=== PATIENT | female | born 1940 | race Caucasian/White ===

== ENCOUNTER 2016-09-13 13:55 | Inpatient (IN) | payer MEDICARE ==
--- NOTE | 2016-09-13 14:26 | ED Physician Chart ---
Chief Complaint/HPI - Patient Information Date Seen:: 09/13/16 Time Seen:: 14:00 Chief Complaint:: CONFUSION History of Present Illness:: THIS IS A 76 YO FEMALE WITH THE SUDDEN ONSET OF CONFUSION WITH MEMORY LOSS THAT STARTED TODAY. SHE JUST GOT BACK TO [place] TWO DAYS AGO. SHE HAS BEEN GOING THERE FOR TREATMENT OF A TUMOR IN HER ABDOMEN, GETTING CHEMOTHERAPY. SHE DENIES NAUSEA, VOMITING AND CHEST PAIN. SHE VERY CONCERNED ABOUT HER THOUGH PROCESS. THE NICE SHOWED UP AND DISPUTED ALL OF THE INFORMATION THAT THE PATIENT STATED ABOVE. SHE HAS BEEN GOING TO [place] EVERY THREE MONTHS FOR CHEMO AND RADIATION. SHE IS VERY CONFUSED. Historian:: Patient, Family Member Review:: Nurse's Note Reviewed Review of Systems - Review of Systems General/Constitutional: No fever, No chills, No weight loss, No weakness, No diaphoresis, No edema, No loss of appetite, Other (THIS PATIENT UNABLE TO GIVE A REVIEW OF SYSTEMS.) Skin: No skin lesions, No rash, No bruising Head: No headache, No light-headedness Eyes: No loss of vision, No pain, No diplopia ENT: No earache, No nasal drainage, No sore throat, No tinnitus Neck: No neck pain, No swelling, No thyromegaly, No stiffness, No mass noted Cardio Vascular: No chest pain, No palpitations, No PND, No orthopnea, No edema Pulmonary: No SOB, No cough, No sputum, No wheezing GI: No nausea, No vomiting, No diarrhea, No pain, No melena, No hematochezia, No constipation, No hematemesis G/U: No dysuria, No frequency, No hematuria Musculoskeletal: No bone or joint pain, No back pain, No muscle pain Endocrine: No polyuria, No polydipsia Psychiatric: No prior psych history, No depression, No anxiety, No suicidal ideation Hematopoietic: No bruising, No lymphadenopathy Allergic/Immuno: No urticaria, No angioedema Neurological: No syncope, No focal symptoms, No weakness, No paresthesia, No headache, No seizure, No dizziness, No confusion, No vertigo Past Medical History - Past Medical History Obtainable: Yes Past Medical History: CAD, CHF, Other (CANCER) Family History: None Social History: Non Smoker, No Alcohol, No Drug Use, Single Surgical History: None Psychiatricy History: None Medication: Reviewed Family Medical History - Family Member Mother History Unknown: Yes Physical Exam - Physical Examination General/Constitutional: Awake, Well-developed, well-nourished, Alert, No distress, GCS 15, Non-toxic appearing, Ambulatory Head: Atraumatic Eyes: Lids, conjuctiva normal, PERRL, EOMI Skin: Nl inspection, No rash, No skin lesions, No ecchymosis, Well hydrated, No lymphadenopathy ENMT: External ears, nose nl, Nasal exam nl, Lips, teeth, gums nl Neck: Nontender, Full ROM w/o pain, No JVD, No nuchal rigidity, No bruit, No mass, No stridor Respiratory: Nl effort/Exclusion Other Respiratory comments:: BILATERAL RALES HEARD Cardio Vascular: No murmur, gallop, rubs, NL S1 S2 Other Cardio Vascular comments:: ATRIAL FIB HEARD WITHOUT MURMUR GI: No tenderness/rebounding/guarding, No organomegaly, No hernia, Normal BS's, Nondistended, No mass/bruits, No McBurney tenderness : No CVA tenderness Extremities: No tenderness or effusion, Full ROM, normal strength in all extremities, No edema, Normal digits & nails Neuro/Psych: Alert/oriented, DTR's symmetric, Normal sensory exam, Normal motor strength, Judgement/insight normal, Mood normal, Normal gait, No focal deficits Misc: normal gait, Normal back, No paraspinal tenderness Labs/Radiology/EKG Results - Lab Results Results: Abnormal Lab Results 09/13/16 09/13/16 09/13/16 14:18 14:18 14:18 WBC 5.2 RBC 4.20 Hgb 12.3 Hct 36.6 MCV 87.3 MCH 29.2 MCHC Differential 33.5 RDW 13.8 Plt Count 140 L MPV 8.0 Neutrophils % 72.4 Lymphocytes % 13.1 L Monocytes % 10.2 H Eosinophils % 4.2 Basophils % 0.1 Sodium 133 L Potassium 3.8 Chloride 103 Carbon Dioxide 25.3 Anion Gap 8.5 BUN 20 Creatinine 0.8 Est GFR ( Amer) TNP Est GFR (Non-Af Amer) TNP BUN/Creatinine Ratio 25.0 Glucose 106 H Calcium 9.3 Total Bilirubin 0.9 AST 19 ALT 20 Alkaline Phosphatase 60 Troponin I 0.01 Total Protein 6.3 Albumin 4.1 Globulin 2.2 Albumin/Globulin Ratio 1.9 H TSH Urine Source Urine Color Urine Clarity Urine pH Ur Specific [place] Urine Protein Urine Glucose (UA) Urine Ketones Urine Blood Urine Nitrate Urine Bilirubin Urine Urobilinogen Ur Leukocyte Esterase Urine RBC Urine WBC Ur Epithelial Cells Urine Bacteria 09/13/16 09/13/16 14:18 15:00 WBC RBC Hgb Hct MCV MCH MCHC Differential RDW Plt Count MPV Neutrophils % Lymphocytes % Monocytes % Eosinophils % Basophils % Sodium Potassium Chloride Carbon Dioxide Anion Gap BUN Creatinine Est GFR ( Amer) Est GFR (Non-Af Amer) BUN/Creatinine Ratio Glucose Calcium Total Bilirubin AST ALT Alkaline Phosphatase Troponin I Total Protein Albumin Globulin Albumin/Globulin Ratio TSH 1.19 Urine Source CLEAN C Urine Color YELLOW Urine Clarity CLEAR Urine pH 6.0 Ur Specific [place] 1.005 Urine Protein NEGATIVE Urine Glucose (UA) NEGATIVE Urine Ketones NEGATIVE Urine Blood TRACE Urine Nitrate NEGATIVE Urine Bilirubin NEGATIVE Urine Urobilinogen 0.2 Ur Leukocyte Esterase NEGATIVE Urine RBC 0-1 Urine WBC 0-2 Ur Epithelial Cells RARE Urine Bacteria OCCASIONAL - Radiology Results Results: CHEST -X-RAY = CHF AND CARDIOMEGALY BRAIN CT = METS LESION NOTED - EKG Interpretations EKG Time:: 14:42 Rate & Rhythm: 92, ATRIAL FIB [place]: LEFT Assessment - Assessment General Assessment: METS TO THE BRAIN NOTED ON CT SCAN ED Septic Shock - . Is Septic Shock (SBP<90, OR Lactate>4 mmol\L) present?: No Reassessment (Disposition) - Reassessment Reassessment Condition:: Unchanged - Diagnosis Diagnosis:: BRAIN METS A FIB CHF - Patient Disposition Discharge/Transfer:: Acute Care w/in this hosp Admitting Medical Physician:: Mikel Hand Condition at Disposition:: Stable ED Discharge Plan - Patient Disposition Admit/Discharge/Transfer: Acute Care w/in this hosp Condition at Disposition: Guarded
[2016-09-13 14:28] LABS: % BASOPHILS 0.1 % (0.0-2.0); % EOSINOPHILS 4.2 % (0.0-5.0); % LYMPHOCYTES 13.1 % (20.0-50.0); % MONOCYTES 10.2 % (2.0-10.0); % NEUTROPHILS 72.4 % (40.0-80.0); HEMATOCRIT 36.6 % (35.0-45.0); HEMOGLOBIN 12.3 gm/dL (11.7-16.1); MEAN CELL VOLUME 87.3 fl (81-100); MEAN CORPUSCULAR HEMOGLOBIN 29.2 pg (27.0-31.0); MEAN CORPUSCULAR HGB CONC 33.5 pg (28.0-36.0); NEUTROPHILE ABSOLUTE 3.8 Th/cmm (1.8-8.0); PLATELET COUNT 140 Th/cmm (150-400); RED CELL DISTRIBUTION WIDTH 13.8 % (11.5-20.0); WHITE BLOOD COUNT 5.2 Th/cmm (4.8-10.8)
[2016-09-13 14:41] LABS: ALB/GLOB RATIO 1.9 (1.0-1.8); ALKALINE PHOSPHATASE 60 U/L (34-104); ANION GAP 8.5 (7.0-16.0); BILIRUBIN,TOTAL 0.9 mg/dL (0.3-1.0); BUN - UREA NITROGEN 20 mg/dL (7-25); CALCIUM SERUM 9.3 mg/dL (8.6-10.3); CARBON DIOXIDE 25.3 mEq/L (21.0-31.0); CHLORIDE 103 mEq/L (98-107); CREATININE - SERUM 0.8 mg/dL (0.6-1.2); GLUCOSE 106 mg/dL (70-105); POTASSIUM SERUM 3.8 mEq/L (3.5-5.1); SGOT 19 U/L (13-39); SGPT/ALT 20 U/L (7-52); SODIUM SERUM 133 mEq/L (136-145)
--- NOTE | 2016-09-13 15:40 | Diagnostic Imaging Report ---
CT scan of the brain without intravenous contrast HISTORY: Stroke, CVA Total DLP equals 621 CTDI equals 36.2 Axial sections were obtained from the base of skull the vertex. Prior exams are not available for comparison. The exam demonstrates an approximate 1.8 cm hyperdense focus adjacent to the medial aspect of the posterior horn of the right lateral ventricle near the trigone. Surrounding hypodensity consistent with edema. Changes consistent with a neoplastic etiology. Correlation with patient history is needed. No other acute parenchymal abnormalities. No intracerebral hemorrhage. No extra-axial masses or abnormal fluid collections. Atherosclerotic calcification seen in the region of the vertebral arteries at the base of the skull. IMPRESSION: 1. Mass adjacent to the posterior medial aspect of the right lateral ventricle near the trigone. Surrounding edema noted. Findings consistent with a neoplastic etiology. Correlation with patient history and a possible prior imaging studies would be most helpful.
--- NOTE | 2016-09-13 15:41 | Diagnostic Imaging Report ---
Right lower extremity Doppler venous ultrasound exam HISTORY: Swelling Sonographic sector images were obtained through the deep venous system of the right leg. Associated Doppler data was obtained. The exam is limited due to soft tissue swelling. There appears to be patency of the right common femoral, superficial femoral, popliteal, posterior tibial veins. No thrombus is seen. Normal compressibility and augmentation responses. IMPRESSION: 1. Somewhat limited exam due to marked soft tissue swelling 2. No definite evidence of deep vein thrombophlebitis
--- NOTE | 2016-09-13 15:44 | Diagnostic Imaging Report ---
Portable chest x-ray HISTORY: Shortness of breath There is marked cardiomegaly. No focal pulmonary processes. There is a degree of pulmonary vascular redistribution suggesting an element of cardiac decompensation. No pleural fluid is seen. A vascular catheter is noted in the region of the superior vena cava. IMPRESSION: 1. Marked cardiomegaly with evidence of a degree of congestive heart failure without branden pulmonary edema. No focal processes.
[2016-09-13 15:52] LABS: URINE BILIRUBIN NEGATIVE (NEGATIVE); URINE BLOOD TRACE (NEGATIVE); URINE COLOR YELLOW; URINE GLUCOSE (UA) NEGATIVE (NEGATIVE); URINE KETONE NEGATIVE (NEGATIVE); URINE PROTEIN NEGATIVE (NEGATIVE); URINE UROBILINOGEN 0.2 E.U./dL (0.2 - 1.0)
[2016-09-13 15:53] LABS: URINE BACTERIA OCCASIONAL /hpf (NONE SEEN); URINE EPITHELIAL CELLS RARE /lpf (FEW); URINE RBC 0-1 /hpf (0-5); URINE WBC 0-2 /hpf (0-5)
[2016-09-13] MEDS ORDERED: Non-Formulary Item 1 EA (Apixaban [Eliquis] 5 MG) PO SCH (21:08)
[2016-09-14 09:00] LABS: % BASOPHILS 0.1 % (0.0-2.0); % EOSINOPHILS 3.7 % (0.0-5.0); % LYMPHOCYTES 13.5 % (20.0-50.0); % MONOCYTES 9.3 % (2.0-10.0); % NEUTROPHILS 73.4 % (40.0-80.0); HEMATOCRIT 38.9 % (35.0-45.0); HEMOGLOBIN 12.8 gm/dL (11.7-16.1); MEAN CELL VOLUME 87.5 fl (81-100); MEAN CORPUSCULAR HEMOGLOBIN 28.9 pg (27.0-31.0); MEAN PLATELET VOLUME 8.5 fl; PLATELET COUNT 134 Th/cmm (150-400); RED BLOOD COUNT 4.44 Mil/cmm (3.80-5.20); RED CELL DISTRIBUTION WIDTH 13.7 % (11.5-20.0); WHITE BLOOD COUNT 4.2 Th/cmm (4.8-10.8)
--- NOTE | 2016-09-14 09:15 | History and Physical ---
History of Present Illness - HPI Chief Complaint: Confusion HPI: 76 year old female presents to [facility] ER for evaluation of confusion with memory loss. Patient has been diagnosed with Abdominal CA and has been undergoing chemotherapy treatment in [place]. Patient's niece notice a change in her behavior and decided to bring her aunt to the hospital for evaluation. While in the ER patient underwent labwork (CBC,CMP,UA). Patient had a chest xray which revealed CHF and cardiomegaly. CT head revealed mets to the brain. Patient was subsequently admitted for further evaluation and treatment. Vital Signs: Last Vital Signs Temp 98.5 F 09/14/16 07:36 Pulse 80 09/14/16 09:05 Resp 20 09/14/16 07:36 BP 167/75 09/14/16 09:05 Pulse Ox 97 09/14/16 07:36 Past Medical History Cardiovascular: Report: AFIB, CAD, CHF Pulmonary: Report: No Pertinent Hx CHECKROOM CHIEF: Report: Other (mets to the brain noted on CT head) GI: Report: Other (abdominal CA) Psych: Report: No Pertinent Hx Musculoskeletal: Report: No Pertinent Hx Rheumatologic: Report: No pertinent Hx Infectious Disease: Report: No Pertinent Hx Renal/: Report: No Pertinent Hx Endocrine: Report: No Pertinent Hx Dermatology: Report: No Pertinent Hx - Past Surgical History Past Surgical History: No pertinent Hx Family Medical History - Family Member Mother History Unknown: Yes Social History Smoke: No Alcohol: None Drugs: None Lives: With Family - Medications Home Medications: Home Medication Medication Instructions Recorded Type Apixaban [Eliquis] 5 mg PO BID 09/13/16 History Carvedilol [Coreg] 12.5 mg PO BID 09/13/16 History - Allergies Allergies/Adverse Reactions: Allergies Allergy/AdvReac Type Severity Reaction Status Date / Time No Known Allergies Allergy Verified 09/13/16 14:42 Review of Systems - Review of Systems Constitutional: Report: No Significant Eyes: Report: No Significant ENT: Report: No Significant Respiratory: Report: No Significant Cardiovascular: Report: No Significant Gastrointestinal: Report: No Significant Genitourinary: Report: No Significant Musculoskeletal: Report: No Significant Skin: Report: No Significant Neurological: Report: Confusion Physical Exam - Physical Exam HEENT: Report: Ears Nose Throat within normal limits Neck: Report: Within normal limits Cardiovascular Systems: Report: +s1/s2 noted, Regular, Rate and Rhythm Respiratory: Report: Breath Sounds are within normal limits Abdomen: Report: Non-tender to palpation Back: Report: Inspection of back is within normal limits. Extremities: Report: Non-tender to palpation. Skin: Report: Color of skin is within normal limits - Lab Results All Lab Results last 24 hours: Laboratory Last Values WBC 4.2 Th/cmm (4.8-10.8) L 09/14/16 09:00 RBC 4.44 Mil/cmm (3.80-5.20) 09/14/16 09:00 Hgb 12.8 gm/dL (11.7-16.1) 09/14/16 09:00 Hct 38.9 % (35.0-45.0) 09/14/16 09:00 MCV 87.5 fl (81-100) 09/14/16 09:00 MCH 28.9 pg (27.0-31.0) 09/14/16 09:00 MCHC Differential 33.0 pg (28.0-36.0) 09/14/16 09:00 RDW 13.7 % (11.5-20.0) 09/14/16 09:00 Plt Count 134 Th/cmm (150-400) L 09/14/16 09:00 MPV 8.5 fl 09/14/16 09:00 Neutrophils % 73.4 % (40.0-80.0) 09/14/16 09:00 Lymphocytes % 13.5 % (20.0-50.0) L 09/14/16 09:00 Monocytes % 9.3 % (2.0-10.0) 09/14/16 09:00 Eosinophils % 3.7 % (0.0-5.0) 09/14/16 09:00 Basophils % 0.1 % (0.0-2.0) 09/14/16 09:00 Sodium 133 mEq/L (136-145) L 09/13/16 14:18 Potassium 3.8 mEq/L (3.5-5.1) 09/13/16 14:18 Chloride 103 mEq/L (98-107) 09/13/16 14:18 Carbon Dioxide 25.3 mEq/L (21.0-31.0) 09/13/16 14:18 Anion Gap 8.5 (7.0-16.0) 09/13/16 14:18 BUN 20 mg/dL (7-25) 09/13/16 14:18 Creatinine 0.8 mg/dL (0.6-1.2) 09/13/16 14:18 Est GFR ( Amer) TNP 09/13/16 14:18 Est GFR (Non-Af Amer) TNP 09/13/16 14:18 BUN/Creatinine Ratio 25.0 09/13/16 14:18 Glucose 106 mg/dL (70-105) H 09/13/16 14:18 Calcium 9.3 mg/dL (8.6-10.3) 09/13/16 14:18 Total Bilirubin 0.9 mg/dL (0.3-1.0) 09/13/16 14:18 AST 19 U/L (13-39) 09/13/16 14:18 ALT 20 U/L (7-52) 09/13/16 14:18 Alkaline Phosphatase 60 U/L (34-104) 09/13/16 14:18 Troponin I 0.01 ng/mL (0.01-0.05) 09/13/16 14:18 Total Protein 6.3 gm/dL (6.0-8.3) 09/13/16 14:18 Albumin 4.1 gm/dL (3.7-5.3) 09/13/16 14:18 Globulin 2.2 gm/dL 09/13/16 14:18 Albumin/Globulin Ratio 1.9 (1.0-1.8) H 09/13/16 14:18 TSH 1.19 uIU/ml (0.34-5.60) 09/13/16 14:18 Urine Source CLEAN C 09/13/16 15:00 Urine Color YELLOW 09/13/16 15:00 Urine Clarity CLEAR (CLEAR) 09/13/16 15:00 Urine pH 6.0 09/13/16 15:00 Ur Specific [place] 1.005 (1.005-1.030) 09/13/16 15:00 Urine Protein NEGATIVE mg/dL (NEGATIVE) 09/13/16 15:00 Urine Glucose (UA) NEGATIVE mg/dL (NEGATIVE) 09/13/16 15:00 Urine Ketones NEGATIVE mg/dL (NEGATIVE) 09/13/16 15:00 Urine Blood TRACE (NEGATIVE) 09/13/16 15:00 Urine Nitrate NEGATIVE (NEGATIVE) 09/13/16 15:00 Urine Bilirubin NEGATIVE (NEGATIVE) 09/13/16 15:00 Urine Urobilinogen 0.2 E.U./dL (0.2 - 1.0) 09/13/16 15:00 Ur Leukocyte Esterase NEGATIVE (NEGATIVE) 09/13/16 15:00 Urine RBC 0-1 /hpf (0-5) 09/13/16 15:00 Urine WBC 0-2 /hpf (0-5) 09/13/16 15:00 Ur Epithelial Cells RARE /lpf (FEW) 09/13/16 15:00 Urine Bacteria OCCASIONAL /hpf (NONE SEEN) 09/13/16 15:00 RPR NONREACTIVE (NONREACTIVE) 09/13/16 14:18 Laboratory Results - last 24 hr 09/14/16 09:00 WBC 4.2 L RBC 4.44 Hgb 12.8 Hct 38.9 MCV 87.5 MCH 28.9 MCHC Differential 33.0 RDW 13.7 Plt Count 134 L MPV 8.5 Neutrophils % 73.4 Lymphocytes % 13.5 L Monocytes % 9.3 Eosinophils % 3.7 Basophils % 0.1 - Assessment Assessment: Current Active Problems Problem Status Onset INCREASED CONFUSION AND PEDAL EDEMA Acute ALOC w/ mets to the brain ... will order neurology consult CAD -- will continue current medication Hyperlipidemia CHF/Atrial Fib -- will continue Eliquis, will order cardiology consult. Mets to the Brain noted on CT head - Plan Plan: ALOC w/ mets to the brain ... will order neurology consult CAD -- will continue current medication Hyperlipidemia CHF/Atrial Fib -- will continue Eliquis, will order cardiology consult. Mets to the Brain noted on CT head
[2016-09-14 09:22] LABS: ALB/GLOB RATIO 1.7 (1.0-1.8); ALKALINE PHOSPHATASE 58 U/L (34-104); ANION GAP 7.6 (7.0-16.0); BILIRUBIN,TOTAL 0.9 mg/dL (0.3-1.0); BUN - UREA NITROGEN 15 mg/dL (7-25); BUN/CREATININE RATIO 21.4; CALCIUM SERUM 9.1 mg/dL (8.6-10.3); CARBON DIOXIDE 28.6 mEq/L (21.0-31.0); CHLORIDE 104 mEq/L (98-107); CREATININE - SERUM 0.7 mg/dL (0.6-1.2); GLUCOSE 158 mg/dL (70-105); POTASSIUM SERUM 4.2 mEq/L (3.5-5.1); SGOT 17 U/L (13-39); SGPT/ALT 16 U/L (7-52); SODIUM SERUM 136 mEq/L (136-145)
--- NOTE | 2016-09-14 17:11 | Consultation ---
DATE OF CONSULTATION: 09/14/2016 REFERRING PHYSICIAN: Dr. Hand. REASON FOR CONSULTATION: Metastatic cancer to the brain. HISTORY OF PRESENT ILLNESS: The patient is a 76-year-old female who was originally from [place]. She was visiting her daughter in [place] when she was diagnosed with abdominal mass and she was started on chemotherapy, Taxol for 3 cycles along with other chemotherapy agent. She does not know the name of it and she had developed neuropathy, therefore treatment was stopped and she received radiation to the abdomen at the site of the tumor in the abdomen. Originally, the tumor was diagnosed with the CT-guided biopsy. She was told that the tumor shrink by half. She was visiting back here and had some change in mental status; therefore, she was admitted to the hospital. CT scan without contrast showed 1.8 cm mass close to the posterior horn of the lateral ventricle with surrounding edema suspicious for metastasis. Therefore, I was asked to evaluate. PAST MEDICAL HISTORY: Atrial fibrillation, on anticoagulation, congestive heart failure, coronary artery disease, history of cancer of unknown primary, presenting with abdominal mass last year as mentioned above. MEDICATIONS: Reviewed, Xarelto, Zestril, Catapres and Coreg. PHYSICAL EXAMINATION: GENERAL: The patient is awake, alert, oriented. No neuro deficits. VITAL SIGNS: Stable. NECK: No peripheral lymphadenopathy. CHEST: Clear. ABDOMEN: Palpable mass in the right lower quadrant. No ascites. EXTREMITIES: Varicose veins in lower extremities, otherwise unremarkable. LABORATORY DATA: CBC, platelets 140. Liver function is normal. Creatinine is 0.8. CT head without contrast as mentioned above. ASSESSMENT: History of carcinoma of unknown primary, status post chemotherapy and radiation therapy with partial response, now with patient is presenting with CT scan positive mass in the head likely metastatic disease. I will repeat the CT scan of the head with contrast and obtain a CT scan of the chest, abdomen and pelvis with contrast and retrieve records from [place] and start the patient on Decadron for the vasogenic edema in the brain. The risks and benefit of using Xarelto will need to be evaluated and addressed by the tank cleaner. Thank you, Dr. Hand, for the opportunity to participate in the care of this interesting case. JOB# [id number]
[2016-09-14] MEDS: Dexamethasone Sodium Phos 4 mg/mL Vial IVP SCH (18:25)
[2016-09-14] MEDS ORDERED: IOHEXOL 350mg/mL 150mL IV ONE (20:24)
--- NOTE | 2016-09-15 00:19 | Consultation ---
DATE OF CONSULTATION: 09/14/[address] Chet Hand. HISTORY AND PHYSICAL: This is a 76-year-old female patient who was brought to the Emergency Room due to confusion. The patient had a CT scan of the brain which showed metastasis in the brain. The patient's chest x-ray showed congestive heart failure and hence the patient is admitted. Cardiac consult is requested. PAST MEDICAL HISTORY: Colon cancer with radiation and chemotherapy, congestive heart failure, diastolic dysfunction, acute hypertension, atrial fibrillation, stable angina, peripheral neuropathy secondary to chemotherapy. FAMILY HISTORY: Unremarkable. SOCIAL HISTORY: No history of smoking or alcohol abuse. ALLERGIES: No known allergies. PHYSICAL EXAMINATION: VITAL SIGNS: Blood pressure 160/80, pulse 70, and respirations 20. HEAD: Normocephalic. No lumps or bumps. EYES: Pupils are equal and reactive to light. Fundi show AV nicking, sclerae white, and conjunctivae pink. NECK: Carotid 2+. Normal upstroke. JVD flat. Thyroid not palpable. Lymph nodes not palpable. CHEST: Shows increased AP diameter. No kyphosis or scoliosis. LUNGS: Bilateral bronchovesicular breath sounds. Bilateral rales. Decreased breath sounds in both the bases. HEART: PMI sixth intercostal space with lateral to midclavicular line. S1 irregular. S2, S3, S4. Systolic murmur, grade 2/6, lower left sternal border without radiation. ABDOMEN: Soft. Liver and spleen not palpable. No organomegaly. Bowel sounds are active. NEUROLOGIC: Peripheral neuropathy. EXTREMITIES: Peripheral pulses 1+. No pedal edema. CLINICAL IMPRESSION: Cancer of the colon with brain metastasis, congestive heart failure, diastolic dysfunction, acute hypertension, new onset of atrial fibrillation, stable angina, and peripheral neuropathy. PLAN: We will anticoagulate the patient, have Oncology evaluation and control the heart rate and get echocardiogram. JOB# [id number]
[2016-09-15] MEDS: Dexamethasone Sodium Phos 4 mg/mL Vial IVP SCH ×4 (00:32→18:48)
--- NOTE | 2016-09-15 00:54 | Admit Criteria Form ---
Admit Criteria Forms - Admit Criteria Diagnosis: MENTAL STATUS CHANGE Clinical Indications for Inpatient Care (Place 'X' for any and all applicable criteria): Ongoing inpatient care may be needed for 1 or more of the following(1)(2)(3)(5)( 6): [X ]I. Suspected serious etiology (eg, medical disorder, [employer] event) of altered mental status [ ]II. Danger to self or others not manageable at lower level of care [ ]III. Grave disability (eg, inability to perform self care necessary at lower level of care) [ ]IV. Agitation or inappropriate behavior interfering with care for primary condition (eg, attempting to discontinue lines or drains prematurely, unable to cooperate with respiratory care) [ ]V. Delirium [A] [D][E] as described by 1 or more of the following(26): [ ]a) Delirium due to alcohol or sedative [F] withdrawal [ ]b) Delirium of uncertain etiology that has not responded to appropriate empiric treatment [ ]c) Delirium that prevents performance of a life-sustaining function (eg, feeding or hydrating oneself) [X ]. General contraindications and/or Inappropriate clinical situations for Observational Care in patients with Mental Status Change, when ANY ONE of the following is required: [X ]a) Prediction of prolongation of LOS based on ANY ONE of the following may be considered as a contraindication for observational care 2, 3, 4, 5, 6, 7, 8, 9, 10, 11 [ X]i) Age > 65 yrs. [ ]ii) Patient arriving by ambulance [X ]iii) Patient with high acuity [ ]iv) Patient requiring vital sign monitoring [ ]v) Patient on IV medication [ ]b) Systolic blood pressures greater than or equal to 180mmHg 3, 12 [ ]c) Patient with altered mental status including delirium and other alteration of consciousness, (3) [ ]d) Patient whose discharge disposition will be to a jail home or rehabilitation home should not be managed in Emergency Department Observation Unit. CMS rule requires 3 days hospital stay before such placement.3,13 [ ]e) Patient with failure to thrive due to broad array of etiologies 3,16,17 [ ]f) Inability to ambulate 3,14 Extended stay beyond goal length of stay for the primary condition may be needed until ALL of the following are present(3)(5): [ ]a) Underlying medical etiology of mental status change is absent, or has been established and adequately treated [ ]b) Danger to self or others is absent or manageable at lower level of care. [ ]c) Behavior crisis management, including physical or chemical restraints, is not required or available at lower level of car [ ]d) Substance or alcohol withdrawal is absent or manageable at lower level of care. [ ]e) Behavioral symptoms (eg, agitation, somnolence, inappropriate behavior) are absent, or are manageable at lower level of care. The original [facility] content created by [facility] has been revised. The portions of the content which have been revised are identified through the use of italic text or in bold, and [facility] has neither reviewed nor approved the modified material. All other unmodified content is copyright [facility]. Please see references footnoted in the original [facility] edition 2016 Admit Criteria Met?: Yes
--- NOTE | 2016-09-15 08:13 | General Progress Note ---
Subjective - Review of Systems Service Date: 09/15/16 Subjective: Patient was seen and evaluated this morning. Patient denies any headaches or discomfort. Eating breakfast this morning. Patient had CT chest/abdomen/pelvis results still pending at this time. Patient was seen evaluated by hematology/ oncology. Please see dictated report. Patient was also seen by cardiology for history of Atrial Fibrillation and CHF. Please see dictated report. Objective - Results Result Diagrams: 09/14/16 09:00 09/14/16 09:00 Recent Labs: Laboratory Last Values WBC 4.2 Th/cmm (4.8-10.8) L 09/14/16 09:00 RBC 4.44 Mil/cmm (3.80-5.20) 09/14/16 09:00 Hgb 12.8 gm/dL (11.7-16.1) 09/14/16 09:00 Hct 38.9 % (35.0-45.0) 09/14/16 09:00 MCV 87.5 fl (81-100) 09/14/16 09:00 MCH 28.9 pg (27.0-31.0) 09/14/16 09:00 MCHC Differential 33.0 pg (28.0-36.0) 09/14/16 09:00 RDW 13.7 % (11.5-20.0) 09/14/16 09:00 Plt Count 134 Th/cmm (150-400) L 09/14/16 09:00 MPV 8.5 fl 09/14/16 09:00 Neutrophils % 73.4 % (40.0-80.0) 09/14/16 09:00 Lymphocytes % 13.5 % (20.0-50.0) L 09/14/16 09:00 Monocytes % 9.3 % (2.0-10.0) 09/14/16 09:00 Eosinophils % 3.7 % (0.0-5.0) 09/14/16 09:00 Basophils % 0.1 % (0.0-2.0) 09/14/16 09:00 Sodium 136 mEq/L (136-145) 09/14/16 09:00 Potassium 4.2 mEq/L (3.5-5.1) 09/14/16 09:00 Chloride 104 mEq/L (98-107) 09/14/16 09:00 Carbon Dioxide 28.6 mEq/L (21.0-31.0) 09/14/16 09:00 Anion Gap 7.6 (7.0-16.0) 09/14/16 09:00 BUN 15 mg/dL (7-25) 09/14/16 09:00 Creatinine 0.7 mg/dL (0.6-1.2) 09/14/16 09:00 Est GFR ( Amer) TNP 09/14/16 09:00 Est GFR (Non-Af Amer) TNP 09/14/16 09:00 BUN/Creatinine Ratio 21.4 09/14/16 09:00 Glucose 158 mg/dL (70-105) H 09/14/16 09:00 Calcium 9.1 mg/dL (8.6-10.3) 09/14/16 09:00 Total Bilirubin 0.9 mg/dL (0.3-1.0) 09/14/16 09:00 AST 17 U/L (13-39) 09/14/16 09:00 ALT 16 U/L (7-52) 09/14/16 09:00 Alkaline Phosphatase 58 U/L (34-104) 09/14/16 09:00 Troponin I 0.01 ng/mL (0.01-0.05) 09/13/16 14:18 B-Natriuretic Peptide 177.0 pg/mL (5.0-100.0) H 09/15/16 05:30 Total Protein 5.9 gm/dL (6.0-8.3) L 09/14/16 09:00 Albumin 3.7 gm/dL (3.7-5.3) 09/14/16 09:00 Globulin 2.2 gm/dL 09/14/16 09:00 Albumin/Globulin Ratio 1.7 (1.0-1.8) 09/14/16 09:00 TSH 1.19 uIU/ml (0.34-5.60) 09/13/16 14:18 Urine Source CLEAN C 09/13/16 15:00 Urine Color YELLOW 09/13/16 15:00 Urine Clarity CLEAR (CLEAR) 09/13/16 15:00 Urine pH 6.0 09/13/16 15:00 Ur Specific [place] 1.005 (1.005-1.030) 09/13/16 15:00 Urine Protein NEGATIVE mg/dL (NEGATIVE) 09/13/16 15:00 Urine Glucose (UA) NEGATIVE mg/dL (NEGATIVE) 09/13/16 15:00 Urine Ketones NEGATIVE mg/dL (NEGATIVE) 09/13/16 15:00 Urine Blood TRACE (NEGATIVE) 09/13/16 15:00 Urine Nitrate NEGATIVE (NEGATIVE) 09/13/16 15:00 Urine Bilirubin NEGATIVE (NEGATIVE) 09/13/16 15:00 Urine Urobilinogen 0.2 E.U./dL (0.2 - 1.0) 09/13/16 15:00 Ur Leukocyte Esterase NEGATIVE (NEGATIVE) 09/13/16 15:00 Urine RBC 0-1 /hpf (0-5) 09/13/16 15:00 Urine WBC 0-2 /hpf (0-5) 09/13/16 15:00 Ur Epithelial Cells RARE /lpf (FEW) 09/13/16 15:00 Urine Bacteria OCCASIONAL /hpf (NONE SEEN) 09/13/16 15:00 RPR NONREACTIVE (NONREACTIVE) 09/13/16 14:18 - Physical Exam Vitals and I&O: Vital Signs Temp 98.4 F 09/15/16 03:58 Pulse 86 09/15/16 03:58 Resp 18 09/15/16 05:08 BP 148/72 09/15/16 03:58 Pulse Ox 97 09/15/16 03:58 Intake & Output 09/14/16 09/15/16 09/15/16 18:59 06:59 18:59 Intake Total 740 Balance 740 Weight (lbs) 72.121 kg Intake: Oral 740 Other: # Voids 2 # Bowel Movements 0 Active Medications: Current Medications Carvedilol (Coreg) 12.5 mg PO BID [facility] Stop: 11/12/16 21:07 Last Admin: 09/14/16 18:23 Dose: 12.5 mg Clonidine HCl (Catapres) 0.1 mg PO Q6HR PRN PRN Reason: SBP>180 Stop: 11/12/16 21:08 Dexamethasone Sodium Phosphate (Decadron) 4 mg IVP Q6HR [facility] Stop: 11/13/16 17:59 Last Admin: 09/15/16 05:53 Dose: 4 mg Lisinopril (Zestril) 10 mg PO DAILY [facility] Stop: 11/13/16 08:59 Last Admin: 09/14/16 09:00 Dose: 10 mg Rivaroxaban (Xarelto) 20 mg PO DAILY [facility] Stop: 11/13/16 12:59 Last Admin: 09/14/16 18:25 Dose: 20 mg General: Alert, Oriented x3, Cooperative, No acute distress HEENT: Atraumatic, PERRLA, EOMI Neck: Supple Cardiovascular: Regular rate Abdomen: Bowel sounds, Soft Extremities: no Clubbing, no Cyanosis, no Edema Neurological: Normal gait, Normal speech Assessment/Plan - Problem List Patient Problems: All Active Problems Altered level of consciousness (Acute) R40.4 Atrial fibrillation (Acute) I48.91 Brain metastasis (Acute) C79.31 Cardiomegaly (Acute) I51.7 Hypertension (Acute) I10 INCREASED CONFUSION AND PEDAL EDEMA (Acute) Intra-abdominal tumor (Acute) D49.89 - Assessment Assessment: Current Active Problems Problem Status Onset INCREASED CONFUSION AND PEDAL EDEMA Acute ALOC w/ mets to the brain ... appreciated oncology evaluation. Patient on Dexamethosone. CAD -- will continue current medication Hyperlipidemia -- will order lipid profile CHF/Atrial Fib -- patient evaluated by cardiology, please see dictated report. Patient on Xarelto. Eliquis DC Brain metastasis -- CT chest,abdomen,pelvis. .. results pending Hypertension ... continue current orders. - Plan Plan: ALOC w/ mets to the brain ... will order neurology consult CAD -- will continue current medication Hyperlipidemia CHF/Atrial Fib -- will continue Eliquis, will order cardiology consult. Mets to the Brain noted on CT head
--- NOTE | 2016-09-15 10:21 | General Progress Note ---
Subjective - Review of Systems Service Date: 09/15/16 Subjective: no sz or headache Objective - Results Result Diagrams: 09/14/16 09:00 09/14/16 09:00 Recent Labs: Laboratory Last Values WBC 4.2 Th/cmm (4.8-10.8) L 09/14/16 09:00 RBC 4.44 Mil/cmm (3.80-5.20) 09/14/16 09:00 Hgb 12.8 gm/dL (11.7-16.1) 09/14/16 09:00 Hct 38.9 % (35.0-45.0) 09/14/16 09:00 MCV 87.5 fl (81-100) 09/14/16 09:00 MCH 28.9 pg (27.0-31.0) 09/14/16 09:00 MCHC Differential 33.0 pg (28.0-36.0) 09/14/16 09:00 RDW 13.7 % (11.5-20.0) 09/14/16 09:00 Plt Count 134 Th/cmm (150-400) L 09/14/16 09:00 MPV 8.5 fl 09/14/16 09:00 Neutrophils % 73.4 % (40.0-80.0) 09/14/16 09:00 Lymphocytes % 13.5 % (20.0-50.0) L 09/14/16 09:00 Monocytes % 9.3 % (2.0-10.0) 09/14/16 09:00 Eosinophils % 3.7 % (0.0-5.0) 09/14/16 09:00 Basophils % 0.1 % (0.0-2.0) 09/14/16 09:00 Sodium 136 mEq/L (136-145) 09/14/16 09:00 Potassium 4.2 mEq/L (3.5-5.1) 09/14/16 09:00 Chloride 104 mEq/L (98-107) 09/14/16 09:00 Carbon Dioxide 28.6 mEq/L (21.0-31.0) 09/14/16 09:00 Anion Gap 7.6 (7.0-16.0) 09/14/16 09:00 BUN 15 mg/dL (7-25) 09/14/16 09:00 Creatinine 0.7 mg/dL (0.6-1.2) 09/14/16 09:00 Est GFR ( Amer) TNP 09/14/16 09:00 Est GFR (Non-Af Amer) TNP 09/14/16 09:00 BUN/Creatinine Ratio 21.4 09/14/16 09:00 Glucose 158 mg/dL (70-105) H 09/14/16 09:00 Calcium 9.1 mg/dL (8.6-10.3) 09/14/16 09:00 Total Bilirubin 0.9 mg/dL (0.3-1.0) 09/14/16 09:00 AST 17 U/L (13-39) 09/14/16 09:00 ALT 16 U/L (7-52) 09/14/16 09:00 Alkaline Phosphatase 58 U/L (34-104) 09/14/16 09:00 Troponin I 0.01 ng/mL (0.01-0.05) 09/13/16 14:18 B-Natriuretic Peptide 177.0 pg/mL (5.0-100.0) H 09/15/16 05:30 Total Protein 5.9 gm/dL (6.0-8.3) L 09/14/16 09:00 Albumin 3.7 gm/dL (3.7-5.3) 09/14/16 09:00 Globulin 2.2 gm/dL 09/14/16 09:00 Albumin/Globulin Ratio 1.7 (1.0-1.8) 09/14/16 09:00 TSH 1.19 uIU/ml (0.34-5.60) 09/13/16 14:18 Urine Source CLEAN C 09/13/16 15:00 Urine Color YELLOW 09/13/16 15:00 Urine Clarity CLEAR (CLEAR) 09/13/16 15:00 Urine pH 6.0 09/13/16 15:00 Ur Specific [place] 1.005 (1.005-1.030) 09/13/16 15:00 Urine Protein NEGATIVE mg/dL (NEGATIVE) 09/13/16 15:00 Urine Glucose (UA) NEGATIVE mg/dL (NEGATIVE) 09/13/16 15:00 Urine Ketones NEGATIVE mg/dL (NEGATIVE) 09/13/16 15:00 Urine Blood TRACE (NEGATIVE) 09/13/16 15:00 Urine Nitrate NEGATIVE (NEGATIVE) 09/13/16 15:00 Urine Bilirubin NEGATIVE (NEGATIVE) 09/13/16 15:00 Urine Urobilinogen 0.2 E.U./dL (0.2 - 1.0) 09/13/16 15:00 Ur Leukocyte Esterase NEGATIVE (NEGATIVE) 09/13/16 15:00 Urine RBC 0-1 /hpf (0-5) 09/13/16 15:00 Urine WBC 0-2 /hpf (0-5) 09/13/16 15:00 Ur Epithelial Cells RARE /lpf (FEW) 09/13/16 15:00 Urine Bacteria OCCASIONAL /hpf (NONE SEEN) 09/13/16 15:00 RPR NONREACTIVE (NONREACTIVE) 09/13/16 14:18 - Physical Exam Vitals and I&O: Vital Signs Temp 98.4 F 09/15/16 03:58 Pulse 87 09/15/16 09:08 Resp 18 09/15/16 05:08 BP 162/81 09/15/16 09:08 Pulse Ox 97 09/15/16 03:58 Intake & Output 09/14/16 09/15/16 09/15/16 18:59 06:59 18:59 Intake Total 740 Balance 740 Weight (lbs) 72.121 kg Intake: Oral 740 Other: # Voids 2 # Bowel Movements 0 Active Medications: Current Medications Carvedilol (Coreg) 12.5 mg PO BID [facility] Stop: 11/12/16 21:07 Last Admin: 09/15/16 09:08 Dose: 12.5 mg Clonidine HCl (Catapres) 0.1 mg PO Q6HR PRN PRN Reason: SBP>180 Stop: 11/12/16 21:08 Dexamethasone Sodium Phosphate (Decadron) 4 mg IVP Q6HR [facility] Stop: 11/13/16 17:59 Last Admin: 09/15/16 05:53 Dose: 4 mg Lisinopril (Zestril) 10 mg PO DAILY [facility] Stop: 11/13/16 08:59 Last Admin: 09/15/16 09:07 Dose: 10 mg Rivaroxaban (Xarelto) 20 mg PO DAILY [facility] Stop: 11/13/16 12:59 Last Admin: 09/15/16 09:07 Dose: 20 mg General: Alert, Oriented x3, Cooperative, No acute distress HEENT: Atraumatic, PERRLA, EOMI Neck: Supple Cardiovascular: Regular rate Abdomen: Bowel sounds, Soft Extremities: no Clubbing, no Cyanosis, no Edema Neurological: Normal gait, Normal speech Assessment/Plan - Problem List Patient Problems: All Active Problems Atrial fibrillation (Acute) I48.91 Brain metastasis (Acute) C79.31 Cardiomegaly (Acute) I51.7 Hypertension (Acute) I10 Intra-abdominal tumor (Acute) D49.89 Altered level of consciousness (Acute) R40.4 INCREASED CONFUSION AND PEDAL EDEMA (Acute) - Assessment Assessment: awaiting result of CT head with contrast records requested from Dr. Anastacio silva
--- NOTE | 2016-09-15 10:24 | Diagnostic Imaging Report ---
Head CT with intravenous contrast Indication: Brain mass Comparison: Head CT on 09/13/2016 Technique: Axial images were obtained from the vertex to the skull base with IV contrast. Coronal reconstructions were made. Total DLP: 717, CTDI35 FINDINGS: Images of the brain obtained of the same with IV contrast demonstrate a 2 cm enhancing mass seen along the right frontoparietal region located superior and medial to the to the frontal horn of the right lateral ventricle. There is diffuse surrounding vasogenic edema and mild mass effect upon the right lateral ventricle. No evidence of midline shift. No other enhancing mass lesions identified. Limited assessment for hemorrhage demonstrates no evidence of a gross hemorrhage. The osseous structures demonstrate no acute abnormalities. IMPRESSION: 2 cm enhancing mass lesion located within the right frontoparietal lobe superior and medial to the right lateral ventricle with associated diffuse vasogenic edema. Associated mass effect is seen within the right lateral ventricle. No evidence of midline shift. Findings may represent metastatic disease or primary brain neoplasm. Clinical correlation and follow-up is recommended.
--- NOTE | 2016-09-15 10:29 | Diagnostic Imaging Report ---
CT Chest with IV contrast HISTORY: Malignancy COMPARISON: Chest x-ray performed on 09/13/2016. Technique: Axial images were obtained from the base of the neck to the upper abdomen following IV contrast. Reconstructions were made. Total DLP 217, CTDI 5.8 Findings: A right-sided Port-A-Cath is seen with tip terminating within the cavoatrial junction. There is are few nonspecific nonenlarged right paratracheal lymph nodes. Cardiomegaly is noted with mild atherosclerotic vascular disease. No evidence of any aortic aneurysm. No pericardial effusion identified. Mild chronic lung changes are seen with minimal emphysematous changes. Atelectatic hypoventilatory left lung changes are seen with bibasilar passive atelectatic changes. There is 3 mm nodular opacity the left lung base is (image 84, series 8). No pleural effusions identified. Diffuse degenerative changes of the spine are noted. An old mid sternal fracture is noted. IMPRESSION: 3 mm nodule of the left lower lobe probably due to scarring or old infectious or inflammatory process. Otherwise no pulmonary mass lesions identified. Mild chronic lung changes are mild emphysematous changes Cardiomegaly with mild atherosclerotic vascular disease in tortuous aorta. Few nonenlarged mediastinal lymph nodes noted.
--- NOTE | 2016-09-15 10:36 | Diagnostic Imaging Report ---
CT abdomen and pelvis without and with intravenous contrast Indication: Abdominal pain Comparison: None, Technique: Axial images were obtained from the lung bases to the bilateral proximal femurs before and following administration of IV contrast. Coronal reconstructions were made. total DLP: 1119, CTDI18 FINDINGS: No evidence of focal hepatic or splenic lesions. Limited assessment of the pancreas demonstrates faint calcification along the anterior aspect of the pancreas probably due to old inflammatory process. The adrenal glands are poorly visualized. No evidence of hydronephrosis or nephrolithiasis. Nondistended urinary bladder is noted. Diverticulosis is noted without evidence of diverticulitis. No evidence of acute appendicitis. Gallstones are noted. There are there is abnormal soft tissue density in calcifications seen along the right distal common iliac and external iliac region likely represent a partial calcified level lymph nodes with this area measuring 5.0 x 2.7 cm. 2 cm calcified right retroperitoneal lymph node is also noted. Trace free fluid is seen within the pelvis. Mild atherosclerotic vascular disease is noted. Mild degenerative changes at degenerative changes of the spine are seen advanced in the facet joints of the lower lumbar spine. Nonenlarged Nonenlarged bilateral inguinal lymph nodes are noted. IMPRESSION: Soft tissue density/mass lesion along the right hemipelvis along the right distal common iliac/external iliac chain regions probably representing partially calcified lymph nodes and may have been due to neoplastic process or less likely inflammatory process.. Please correlate with clinical findings. An additional 2 cm calcified right retroperitoneal lymph node is also noted. No evidence of mesenteric lymphadenopathy. No focal hepatic lesions identified. Trace free fluid in the pelvis, nonspecific. Diverticulosis without evidence of diverticulitis.
--- NOTE | 2016-09-15 16:52 | Cardiology ---
09/15/[address] Hand. M-MODE ECHOCARDIOGRAM: Mitral valve, anterior leaflet of mitral valve shows normal excursion, EF velocity. Posterior leaflet of mitral valve shows normal excursion. Left ventricular posterior wall shows increased thickness, normal excursion. Interventricular septum shows increased thickness, normal excursion, hypertrophy of the left ventricle, ejection fraction 60%. Left atrium enlarged 4.3 cm. Aortic root shows normal dimension, normal excursion of aortic leaflets. CONCLUSION: Hypertrophy of the left ventricle, left atrial enlargement, ejection fraction 60%. 2D ECHO: Long axis view showed normal sized left ventricle with hypertrophy of the left ventricle. Left atrium enlarged. Aortic root shows normal dimension, normal excursion of aortic leaflets. Short axis view of mitral valve normal. Short axis view of aortic valve normal. Apical four chamber view showed normal sized left ventricle with hypertrophy of the left ventricle. Left atrium enlarged. Right ventricular cavity, right atrium normal, no pericardial effusion. CONCLUSION: Hypertrophy of the left ventricle. Left atrial enlargement, ejection fraction 60%. Doppler study shows prominent A wave consistent with poor compliance of left ventricle. Mild tricuspid regurgitation, mild mitral regurgitation, right ventricular systolic pressure 27 mmHg. CONCLUSION: Hypertrophy of the left ventricle. Left atrial enlargement, ejection fraction 60%, mild mitral regurgitation and tricuspid regurgitation. [facility]# [id number]
[2016-09-15] MEDS ORDERED: VTE Chemical Prophylaxis Screen/Admission MC PRN (17:28)
[2016-09-16] MEDS: Dexamethasone Sodium Phos 4 mg/mL Vial IVP SCH ×4 (00:55→19:51)
--- NOTE | 2016-09-16 08:08 | General Progress Note ---
Subjective - Review of Systems Service Date: 09/16/16 Subjective: Patient was seen and evaluated this morning. Patient's daughter received all medical records during her hospital. Patient is aware that she has a new mass and will be discharged today to follow up with her regular physicians in [place] for further treatment. Objective - Results Result Diagrams: 09/14/16 09:00 09/14/16 09:00 Recent Labs: Laboratory Last Values WBC 4.2 Th/cmm (4.8-10.8) L 09/14/16 09:00 RBC 4.44 Mil/cmm (3.80-5.20) 09/14/16 09:00 Hgb 12.8 gm/dL (11.7-16.1) 09/14/16 09:00 Hct 38.9 % (35.0-45.0) 09/14/16 09:00 MCV 87.5 fl (81-100) 09/14/16 09:00 MCH 28.9 pg (27.0-31.0) 09/14/16 09:00 MCHC Differential 33.0 pg (28.0-36.0) 09/14/16 09:00 RDW 13.7 % (11.5-20.0) 09/14/16 09:00 Plt Count 134 Th/cmm (150-400) L 09/14/16 09:00 MPV 8.5 fl 09/14/16 09:00 Neutrophils % 73.4 % (40.0-80.0) 09/14/16 09:00 Lymphocytes % 13.5 % (20.0-50.0) L 09/14/16 09:00 Monocytes % 9.3 % (2.0-10.0) 09/14/16 09:00 Eosinophils % 3.7 % (0.0-5.0) 09/14/16 09:00 Basophils % 0.1 % (0.0-2.0) 09/14/16 09:00 Sodium 136 mEq/L (136-145) 09/14/16 09:00 Potassium 4.2 mEq/L (3.5-5.1) 09/14/16 09:00 Chloride 104 mEq/L (98-107) 09/14/16 09:00 Carbon Dioxide 28.6 mEq/L (21.0-31.0) 09/14/16 09:00 Anion Gap 7.6 (7.0-16.0) 09/14/16 09:00 BUN 15 mg/dL (7-25) 09/14/16 09:00 Creatinine 0.7 mg/dL (0.6-1.2) 09/14/16 09:00 Est GFR ( Amer) TNP 09/14/16 09:00 Est GFR (Non-Af Amer) TNP 09/14/16 09:00 BUN/Creatinine Ratio 21.4 09/14/16 09:00 Glucose 158 mg/dL (70-105) H 09/14/16 09:00 Calcium 9.1 mg/dL (8.6-10.3) 09/14/16 09:00 Total Bilirubin 0.9 mg/dL (0.3-1.0) 09/14/16 09:00 AST 17 U/L (13-39) 09/14/16 09:00 ALT 16 U/L (7-52) 09/14/16 09:00 Alkaline Phosphatase 58 U/L (34-104) 09/14/16 09:00 Troponin I 0.01 ng/mL (0.01-0.05) 09/13/16 14:18 B-Natriuretic Peptide 177.0 pg/mL (5.0-100.0) H 09/15/16 05:30 Total Protein 5.9 gm/dL (6.0-8.3) L 09/14/16 09:00 Albumin 3.7 gm/dL (3.7-5.3) 09/14/16 09:00 Globulin 2.2 gm/dL 09/14/16 09:00 Albumin/Globulin Ratio 1.7 (1.0-1.8) 09/14/16 09:00 TSH 1.19 uIU/ml (0.34-5.60) 09/13/16 14:18 Urine Source CLEAN C 09/13/16 15:00 Urine Color YELLOW 09/13/16 15:00 Urine Clarity CLEAR (CLEAR) 09/13/16 15:00 Urine pH 6.0 09/13/16 15:00 Ur Specific [place] 1.005 (1.005-1.030) 09/13/16 15:00 Urine Protein NEGATIVE mg/dL (NEGATIVE) 09/13/16 15:00 Urine Glucose (UA) NEGATIVE mg/dL (NEGATIVE) 09/13/16 15:00 Urine Ketones NEGATIVE mg/dL (NEGATIVE) 09/13/16 15:00 Urine Blood TRACE (NEGATIVE) 09/13/16 15:00 Urine Nitrate NEGATIVE (NEGATIVE) 09/13/16 15:00 Urine Bilirubin NEGATIVE (NEGATIVE) 09/13/16 15:00 Urine Urobilinogen 0.2 E.U./dL (0.2 - 1.0) 09/13/16 15:00 Ur Leukocyte Esterase NEGATIVE (NEGATIVE) 09/13/16 15:00 Urine RBC 0-1 /hpf (0-5) 09/13/16 15:00 Urine WBC 0-2 /hpf (0-5) 09/13/16 15:00 Ur Epithelial Cells RARE /lpf (FEW) 09/13/16 15:00 Urine Bacteria OCCASIONAL /hpf (NONE SEEN) 09/13/16 15:00 RPR NONREACTIVE (NONREACTIVE) 09/13/16 14:18 - Physical Exam Vitals and I&O: Vital Signs Temp 98.5 F 09/16/16 04:00 Pulse 83 09/16/16 04:00 Resp 18 09/16/16 05:00 BP 154/98 09/16/16 04:00 Pulse Ox 97 09/16/16 04:00 Intake & Output 09/15/16 09/16/16 09/16/16 18:59 06:59 18:59 Intake Total 300 Balance 300 Weight (lbs) 72.121 kg 72.575 kg 72.575 kg Intake: Oral 300 Other: # Voids 2 Active Medications: Current Medications Carvedilol (Coreg) 12.5 mg PO BID [facility] Stop: 11/12/16 21:07 Last Admin: 09/15/16 18:48 Dose: 12.5 mg Clonidine HCl (Catapres) 0.1 mg PO Q6HR PRN PRN Reason: SBP>180 Stop: 11/12/16 21:08 Dexamethasone Sodium Phosphate (Decadron) 4 mg IVP Q6HR [facility] Stop: 11/13/16 17:59 Last Admin: 09/16/16 06:36 Dose: 4 mg Lisinopril (Zestril) 10 mg PO DAILY [facility] Stop: 11/13/16 08:59 Last Admin: 09/15/16 09:07 Dose: 10 mg Miscellaneous ([employer] Prophylaxis Screen/ Admission) 1 ea PRN PRN PRN Reason: PROTOCOL Stop: 11/14/16 17:27 Rivaroxaban (Xarelto) 20 mg PO DAILY [facility] Stop: 11/13/16 12:59 Last Admin: 09/15/16 09:07 Dose: 20 mg General: Alert, Oriented x3, Cooperative, No acute distress HEENT: Atraumatic, PERRLA, EOMI Neck: Supple Cardiovascular: Regular rate Abdomen: Bowel sounds, Soft Extremities: no Clubbing, no Cyanosis, no Edema Neurological: Normal gait, Normal speech Assessment/Plan - Problem List Patient Problems: All Active Problems Atrial fibrillation (Acute) I48.91 Brain metastasis (Acute) C79.31 Cardiomegaly (Acute) I51.7 Hypertension (Acute) I10 Intra-abdominal tumor (Acute) D49.89 Altered level of consciousness (Acute) R40.4 INCREASED CONFUSION AND PEDAL EDEMA (Acute) - Assessment Assessment: Current Active Problems Problem Status Onset INCREASED CONFUSION AND PEDAL EDEMA Acute ALOC w/ mets to the brain ... improved on Dexamethasone. Will DC home today. patient stable to be released. Advised to follow up with her oncologist in [place]. CAD -- will continue current medication Hyperlipidemia -- will continue current medication CHF/Atrial Fib -- patient evaluated by cardiology, please see dictated report. Patient on Xarelto. Eliquis DC Brain metastasis -- CT chest,abdomen,pelvis Hypertension ... continue current orders. - Plan Plan: ALOC w/ mets to the brain ... will order neurology consult CAD -- will continue current medication Hyperlipidemia CHF/Atrial Fib -- will continue Eliquis, will order cardiology consult. Mets to the Brain noted on CT head
--- NOTE | 2016-09-16 10:21 | General Progress Note ---
Subjective - Review of Systems Service Date: 09/16/16 Events since last encounter: no sz Subjective: no sz or headache Objective - Results Result Diagrams: 09/14/16 09:00 09/14/16 09:00 Recent Labs: Laboratory Last Values WBC 4.2 Th/cmm (4.8-10.8) L 09/14/16 09:00 RBC 4.44 Mil/cmm (3.80-5.20) 09/14/16 09:00 Hgb 12.8 gm/dL (11.7-16.1) 09/14/16 09:00 Hct 38.9 % (35.0-45.0) 09/14/16 09:00 MCV 87.5 fl (81-100) 09/14/16 09:00 MCH 28.9 pg (27.0-31.0) 09/14/16 09:00 MCHC Differential 33.0 pg (28.0-36.0) 09/14/16 09:00 RDW 13.7 % (11.5-20.0) 09/14/16 09:00 Plt Count 134 Th/cmm (150-400) L 09/14/16 09:00 MPV 8.5 fl 09/14/16 09:00 Neutrophils % 73.4 % (40.0-80.0) 09/14/16 09:00 Lymphocytes % 13.5 % (20.0-50.0) L 09/14/16 09:00 Monocytes % 9.3 % (2.0-10.0) 09/14/16 09:00 Eosinophils % 3.7 % (0.0-5.0) 09/14/16 09:00 Basophils % 0.1 % (0.0-2.0) 09/14/16 09:00 Sodium 136 mEq/L (136-145) 09/14/16 09:00 Potassium 4.2 mEq/L (3.5-5.1) 09/14/16 09:00 Chloride 104 mEq/L (98-107) 09/14/16 09:00 Carbon Dioxide 28.6 mEq/L (21.0-31.0) 09/14/16 09:00 Anion Gap 7.6 (7.0-16.0) 09/14/16 09:00 BUN 15 mg/dL (7-25) 09/14/16 09:00 Creatinine 0.7 mg/dL (0.6-1.2) 09/14/16 09:00 Est GFR ( Amer) TNP 09/14/16 09:00 Est GFR (Non-Af Amer) TNP 09/14/16 09:00 BUN/Creatinine Ratio 21.4 09/14/16 09:00 Glucose 158 mg/dL (70-105) H 09/14/16 09:00 Calcium 9.1 mg/dL (8.6-10.3) 09/14/16 09:00 Total Bilirubin 0.9 mg/dL (0.3-1.0) 09/14/16 09:00 AST 17 U/L (13-39) 09/14/16 09:00 ALT 16 U/L (7-52) 09/14/16 09:00 Alkaline Phosphatase 58 U/L (34-104) 09/14/16 09:00 Troponin I 0.01 ng/mL (0.01-0.05) 09/13/16 14:18 B-Natriuretic Peptide 177.0 pg/mL (5.0-100.0) H 09/15/16 05:30 Total Protein 5.9 gm/dL (6.0-8.3) L 09/14/16 09:00 Albumin 3.7 gm/dL (3.7-5.3) 09/14/16 09:00 Globulin 2.2 gm/dL 09/14/16 09:00 Albumin/Globulin Ratio 1.7 (1.0-1.8) 09/14/16 09:00 TSH 1.19 uIU/ml (0.34-5.60) 09/13/16 14:18 Urine Source CLEAN C 09/13/16 15:00 Urine Color YELLOW 09/13/16 15:00 Urine Clarity CLEAR (CLEAR) 09/13/16 15:00 Urine pH 6.0 09/13/16 15:00 Ur Specific [place] 1.005 (1.005-1.030) 09/13/16 15:00 Urine Protein NEGATIVE mg/dL (NEGATIVE) 09/13/16 15:00 Urine Glucose (UA) NEGATIVE mg/dL (NEGATIVE) 09/13/16 15:00 Urine Ketones NEGATIVE mg/dL (NEGATIVE) 09/13/16 15:00 Urine Blood TRACE (NEGATIVE) 09/13/16 15:00 Urine Nitrate NEGATIVE (NEGATIVE) 09/13/16 15:00 Urine Bilirubin NEGATIVE (NEGATIVE) 09/13/16 15:00 Urine Urobilinogen 0.2 E.U./dL (0.2 - 1.0) 09/13/16 15:00 Ur Leukocyte Esterase NEGATIVE (NEGATIVE) 09/13/16 15:00 Urine RBC 0-1 /hpf (0-5) 09/13/16 15:00 Urine WBC 0-2 /hpf (0-5) 09/13/16 15:00 Ur Epithelial Cells RARE /lpf (FEW) 09/13/16 15:00 Urine Bacteria OCCASIONAL /hpf (NONE SEEN) 09/13/16 15:00 RPR NONREACTIVE (NONREACTIVE) 09/13/16 14:18 - Physical Exam Vitals and I&O: Vital Signs Temp 97.4 F 09/16/16 09:09 Pulse 78 09/16/16 09:09 Resp 19 09/16/16 09:09 BP 155/80 09/16/16 09:09 Pulse Ox 96 09/16/16 09:09 Intake & Output 09/15/16 09/16/16 09/16/16 18:59 06:59 18:59 Intake Total 300 Balance 300 Weight (lbs) 72.121 kg 72.575 kg 72.575 kg Intake: Oral 300 Other: # Voids 2 Active Medications: Current Medications Carvedilol (Coreg) 12.5 mg PO BID [facility] Stop: 11/12/16 21:07 Last Admin: 09/16/16 08:03 Dose: 12.5 mg Clonidine HCl (Catapres) 0.1 mg PO Q6HR PRN PRN Reason: SBP>180 Stop: 11/12/16 21:08 Dexamethasone Sodium Phosphate (Decadron) 4 mg IVP Q6HR [facility] Stop: 11/13/16 17:59 Last Admin: 09/16/16 06:36 Dose: 4 mg Lisinopril (Zestril) 10 mg PO DAILY [facility] Stop: 11/13/16 08:59 Last Admin: 09/16/16 08:02 Dose: 10 mg Miscellaneous (Vte Chemical Prophylaxis Screen/ Admission) 1 ea [facility] PRN PRN PRN Reason: PROTOCOL Stop: 11/14/16 17:27 Rivaroxaban (Xarelto) 20 mg PO DAILY [facility] Stop: 11/13/16 12:59 Last Admin: 09/16/16 08:03 Dose: 20 mg General: Alert, Oriented x3, Cooperative, No acute distress HEENT: Atraumatic, PERRLA, EOMI Neck: Supple Cardiovascular: Regular rate Abdomen: Bowel sounds, Soft Extremities: no Clubbing, no Cyanosis, no Edema Neurological: Normal gait, Normal speech Assessment/Plan - Problem List Patient Problems: All Active Problems Atrial fibrillation (Acute) I48.91 Brain metastasis (Acute) C79.31 Cardiomegaly (Acute) I51.7 Hypertension (Acute) I10 Intra-abdominal tumor (Acute) D49.89 Altered level of consciousness (Acute) R40.4 INCREASED CONFUSION AND PEDAL EDEMA (Acute) - Assessment Assessment: result of CT head with contrast was discussed with patient. Explained need for neurosurgical intervention and resection of brain mass. Explained risk of flying that may be life threatening. Daughter was bed side . Suggested transfere to another facility for surgery. Pt. will discuss with family and decide. records requested from Dr. Chaves not received yet. continue decadron
--- NOTE | 2016-09-16 15:14 | Diagnostic Imaging Report ---
MRI Brain without intravenous and with Contrast Indication: Mass Comparison: CAT scan of the head performed on 09/14/2016 Technique: Multiplanar T1, T2, FLAIR, GRE and diffusion weighted images of the brain were obtained without intravenous contrast.. IV contrast was subsequently administered and multiplanar T1-weighted images were obtained. Findings: m images of the brain obtained without contrast demonstrate no evidence of restricted diffusion. There is a 2 cm mass with enhancement including circular peripheral enhancement seen located posterior and medial to the posterior horn of the right lateral ventricle along the right parieto-occipital region with associated vasogenic edema and mild mass effect upon the posterior horn of the right lateral ventricle. No evidence of midline shift. No other enhancing mass lesions identified. The basal cisterns are patent. No midline shift. The bilateral CP angles are patent. The vascular flow voids are preserved. Visualized paranasal sinuses are clear. IMPRESSION: 2 cm mass lesion with enhancement seen located posterior and medial to the posterior horn of the right lateral ventricle with associated vasogenic edema seen along the right parieto-occipital region. Mild mass effect is seen along the posterior horn of the right lateral ventricle. No evidence of hydrocephalus. No evidence of midline shift. Findings may result in metastatic disease or primary brain neoplasm. Clinical Correlation recommended.
[2016-09-17] MEDS: Dexamethasone Sodium Phos 4 mg/mL Vial IVP SCH ×2 (00:25→05:50)
--- NOTE | 2016-09-17 06:46 | Consultation ---
DATE OF CONSULTATION: 09/16/2016 HISTORY OF PRESENT ILLNESS: The patient is a 76-year-old. She came in because of confusion. She was at the [employer] asking a lot of questions which she seemed to not been able to answer. The family feels she is currently back to her baseline. She is talking better. ____ seems to be somewhat unsure at times. The patient then complains of weakness in right leg, which she has for sometime. CT scan was abnormal. Question of possible tremor. The patient has a history of abdominal cancer. She has been getting chemotherapy. They note that she has been weak in the right leg for many months. ____ in right lower quadrant. I do not know whether it is passing against the lumbar plexus or not. PAST MEDICAL HISTORY: Otherwise, atrial fibrillation, coronary artery disease, and CHF. SOCIAL HISTORY: Does not smoke or drink. MEDICATIONS: She had been taking up apixaban and Coreg. ALLERGIES: None known. REVIEW OF SYSTEMS: No marked headache, no chest pain. The patient has no seizures. Weakness, right leg. Of note, no tremors as above. PHYSICAL EXAMINATION: VITAL SIGNS: Temperature 98.8, blood pressure 155/72, and pulse is around 80. NECK: Supple, no bruits. HEART: Sounds S1, S2. LUNGS: Clear. ABDOMEN: Tenderness. NEUROLOGIC: Awake and alert. She answers questions. She knew what day, what month, and what year. CRANIAL: Pupils react to light. I do not see any field defect. No marked facial weakness. MOTOR: She lifts both arms up. There is a slight drift on the left arm. Legs, she is ____ weak in the right leg. Left leg seems to be okay. There is some swelling on the right leg. Reflexes about 1 in upper extremities. Knees are about -1. Difficult to get on the right and left is about -1____. Ankles difficult to get. She complains of some reduced sensation in the feet and the hands, probably may be neuropathy. INVESTIGATIONS: MRI of brain shows a 2 cm lesion with enhancement in the posterior horn of the right ventricle with some edema along it in the right posterior occipital region. There is some pressure on the ventricle. No hydrocephalus. No midline shift. IMPRESSION: 1. Brain lesion. Differential primary tumor versus metastasis. 2. Abdominal cancer. 3. Atrial fibrillation, on anticoagulation. 4. Coronary artery disease. PLAN: At this time, Decadron, she is on 4 mg IV q. 6 h. Continue with that. The patient needs to be transferred to a place where she can have neurosurgical consultation to see whether any intervention at this time or whether to go along and proceed with treatment with radiation or such. Family is by the bedside. I discussed with them in detail. JOB# [id number]
--- NOTE | 2016-09-17 08:03 | General Progress Note ---
Subjective - Review of Systems Service Date: 09/17/16 Subjective: Patient was seen and evaluated this morning. Patient and her daughter saw neurology last night and was cleared to travel back to [place] to continue her treatment. Patient's daughter received all medical records during her hospital. Patient to be discharged today and to follow up with her regular physicians in [place] for further treatment. Objective - Results Result Diagrams: 09/14/16 09:00 09/14/16 09:00 Recent Labs: Laboratory Last Values WBC 4.2 Th/cmm (4.8-10.8) L 09/14/16 09:00 RBC 4.44 Mil/cmm (3.80-5.20) 09/14/16 09:00 Hgb 12.8 gm/dL (11.7-16.1) 09/14/16 09:00 Hct 38.9 % (35.0-45.0) 09/14/16 09:00 MCV 87.5 fl (81-100) 09/14/16 09:00 MCH 28.9 pg (27.0-31.0) 09/14/16 09:00 MCHC Differential 33.0 pg (28.0-36.0) 09/14/16 09:00 RDW 13.7 % (11.5-20.0) 09/14/16 09:00 Plt Count 134 Th/cmm (150-400) L 09/14/16 09:00 MPV 8.5 fl 09/14/16 09:00 Neutrophils % 73.4 % (40.0-80.0) 09/14/16 09:00 Lymphocytes % 13.5 % (20.0-50.0) L 09/14/16 09:00 Monocytes % 9.3 % (2.0-10.0) 09/14/16 09:00 Eosinophils % 3.7 % (0.0-5.0) 09/14/16 09:00 Basophils % 0.1 % (0.0-2.0) 09/14/16 09:00 Sodium 136 mEq/L (136-145) 09/14/16 09:00 Potassium 4.2 mEq/L (3.5-5.1) 09/14/16 09:00 Chloride 104 mEq/L (98-107) 09/14/16 09:00 Carbon Dioxide 28.6 mEq/L (21.0-31.0) 09/14/16 09:00 Anion Gap 7.6 (7.0-16.0) 09/14/16 09:00 BUN 15 mg/dL (7-25) 09/14/16 09:00 Creatinine 0.7 mg/dL (0.6-1.2) 09/14/16 09:00 Est GFR ( Amer) TNP 09/14/16 09:00 Est GFR (Non-Af Amer) TNP 09/14/16 09:00 BUN/Creatinine Ratio 21.4 09/14/16 09:00 Glucose 158 mg/dL (70-105) H 09/14/16 09:00 Calcium 9.1 mg/dL (8.6-10.3) 09/14/16 09:00 Total Bilirubin 0.9 mg/dL (0.3-1.0) 09/14/16 09:00 AST 17 U/L (13-39) 09/14/16 09:00 ALT 16 U/L (7-52) 09/14/16 09:00 Alkaline Phosphatase 58 U/L (34-104) 09/14/16 09:00 Troponin I 0.01 ng/mL (0.01-0.05) 09/13/16 14:18 B-Natriuretic Peptide 177.0 pg/mL (5.0-100.0) H 09/15/16 05:30 Total Protein 5.9 gm/dL (6.0-8.3) L 09/14/16 09:00 Albumin 3.7 gm/dL (3.7-5.3) 09/14/16 09:00 Globulin 2.2 gm/dL 09/14/16 09:00 Albumin/Globulin Ratio 1.7 (1.0-1.8) 09/14/16 09:00 TSH 1.19 uIU/ml (0.34-5.60) 09/13/16 14:18 Urine Source CLEAN C 09/13/16 15:00 Urine Color YELLOW 09/13/16 15:00 Urine Clarity CLEAR (CLEAR) 09/13/16 15:00 Urine pH 6.0 09/13/16 15:00 Ur Specific [place] 1.005 (1.005-1.030) 09/13/16 15:00 Urine Protein NEGATIVE mg/dL (NEGATIVE) 09/13/16 15:00 Urine Glucose (UA) NEGATIVE mg/dL (NEGATIVE) 09/13/16 15:00 Urine Ketones NEGATIVE mg/dL (NEGATIVE) 09/13/16 15:00 Urine Blood TRACE (NEGATIVE) 09/13/16 15:00 Urine Nitrate NEGATIVE (NEGATIVE) 09/13/16 15:00 Urine Bilirubin NEGATIVE (NEGATIVE) 09/13/16 15:00 Urine Urobilinogen 0.2 E.U./dL (0.2 - 1.0) 09/13/16 15:00 Ur Leukocyte Esterase NEGATIVE (NEGATIVE) 09/13/16 15:00 Urine RBC 0-1 /hpf (0-5) 09/13/16 15:00 Urine WBC 0-2 /hpf (0-5) 09/13/16 15:00 Ur Epithelial Cells RARE /lpf (FEW) 09/13/16 15:00 Urine Bacteria OCCASIONAL /hpf (NONE SEEN) 09/13/16 15:00 RPR NONREACTIVE (NONREACTIVE) 09/13/16 14:18 - Physical Exam Vitals and I&O: Vital Signs Temp 98.1 F 09/17/16 04:00 Pulse 70 09/17/16 04:00 Resp 18 09/17/16 04:00 BP 160/99 09/17/16 04:00 Pulse Ox 97 09/17/16 04:00 Intake & Output 09/16/16 09/17/16 09/17/16 18:59 06:59 18:59 Intake Total 600 980 Balance 600 980 Weight (lbs) 72.575 kg 73.936 kg Intake: Oral 600 980 Other: # Voids 2 3 # Bowel Movements 1 Active Medications: Current Medications Carvedilol (Coreg) 12.5 mg PO BID [facility] Stop: 11/12/16 21:07 Last Admin: 09/16/16 16:54 Dose: 12.5 mg Dexamethasone Sodium Phosphate (Decadron) 4 mg IVP Q6HR [facility] Stop: 11/13/16 17:59 Last Admin: 09/17/16 05:50 Dose: 4 mg Lisinopril (Zestril) 10 mg PO DAILY [facility] Stop: 11/13/16 08:59 Last Admin: 09/16/16 08:02 Dose: 10 mg Miscellaneous (Vte Chemical Prophylaxis Screen/ Admission) 1 ea [facility] PRN PRN PRN Reason: PROTOCOL Stop: 11/14/16 17:27 General: Alert, Oriented x3, Cooperative, No acute distress HEENT: Atraumatic, PERRLA, EOMI Neck: Supple Cardiovascular: Regular rate Abdomen: Bowel sounds, Soft Extremities: no Clubbing, no Cyanosis, no Edema Neurological: Normal gait, Normal speech Assessment/Plan - Problem List Patient Problems: All Active Problems Atrial fibrillation (Acute) I48.91 Brain metastasis (Acute) C79.31 Cardiomegaly (Acute) I51.7 Hypertension (Acute) I10 Intra-abdominal tumor (Acute) D49.89 Altered level of consciousness (Acute) R40.4 INCREASED CONFUSION AND PEDAL EDEMA (Acute) - Assessment Assessment: Current Active Problems Problem Status Onset INCREASED CONFUSION AND PEDAL EDEMA Acute ALOC w/ mets to the brain ... improved on Dexamethasone. Will DC home today. patient stable to be released. Advised to follow up with her oncologist in [place]. CAD -- will continue current medication Hyperlipidemia -- will continue current medication CHF/Atrial Fib -- patient evaluated by cardiology, please see dictated report. Patient on Xarelto. Eliquis DC Brain metastasis -- CT chest,abdomen,pelvis Hypertension ... continue current orders. clonidine PRN - Plan Plan: ALOC w/ mets to the brain ... will order neurology consult CAD -- will continue current medication Hyperlipidemia CHF/Atrial Fib -- will continue Eliquis, will order cardiology consult. Mets to the Brain noted on CT head
--- NOTE | 2016-09-18 08:02 | Discharge Summary ---
General Discharge Summary - Discharge Summary Date of Admission: 09/14/16 Admitting Diagnosis: Confusion/Altered level of consciousness Patient Problems: All Active Problems Altered level of consciousness (Acute) R40.4 Atrial fibrillation (Acute) I48.91 Brain metastasis (Acute) C79.31 Cardiomegaly (Acute) I51.7 Hypertension (Acute) I10 INCREASED CONFUSION AND PEDAL EDEMA (Acute) Intra-abdominal tumor (Acute) D49.89 Discharge Date: 09/17/16 Discharge Diagnosis: same as above Laboratory Findings: Laboratory Tests 09/14/16 09/14/16 09/15/16 09:00 09:00 05:30 WBC 4.2 L RBC 4.44 Hgb 12.8 Hct 38.9 MCV 87.5 MCH 28.9 MCHC Differential 33.0 RDW 13.7 Plt Count 134 L MPV 8.5 Neutrophils % 73.4 Lymphocytes % 13.5 L Monocytes % 9.3 Eosinophils % 3.7 Basophils % 0.1 Sodium 136 Potassium 4.2 Chloride 104 Carbon Dioxide 28.6 Anion Gap 7.6 BUN 15 Creatinine 0.7 Est GFR ( Amer) TNP Est GFR (Non-Af Amer) TNP BUN/Creatinine Ratio 21.4 Glucose 158 H Calcium 9.1 Total Bilirubin 0.9 AST 17 ALT 16 Alkaline Phosphatase 58 B-Natriuretic Peptide 177.0 H Total Protein 5.9 L Albumin 3.7 Globulin 2.2 Albumin/Globulin Ratio 1.7 Hospital Course: Brief HPI : 76 year old female who presents to [facility] for Evaluation of confusion with memory loss according to the patient's niece. Patient was recently diagnosed with an abdominal CA while staying with her daughter in [place]. For the past 2 years the patient had been seeing an oncologist in [place] and was placed on chemotherapy and radiation treatment for the abdominal mass. Patient was visiting with family in [place]. While in the ER the patient had underwent routine labwork which was negative. A CT head revealed mass to the brain. Patient was subsequently admitted for further evaluation and treatment. Treatment: Patient was seen by Neurology, Cardiology, Hem/Onc. Please see dictated report. Patient was start on dexamethasone. Patient was subsequently discharge home. Patient was advised to return to [place] for further care and treatment. Patient' s daughter was given copies of her medical treatment including CT scan to present to her physicians in [place]. Condition at Discharge: Stable Disposition: PT DISCHARGED HOME Home Medications: Home Medication Medication Instructions Recorded Type Apixaban [Eliquis] 5 mg PO BID 09/13/16 History Carvedilol [Coreg] 12.5 mg PO BID 09/13/16 History Dexamethasone 1 mg PO TID #90 tab 09/16/16 Rx Prescriptions: Dexamethasone 1 mg PO TID #90 tab Consults and Follow-Up: not on staff,PCP is [Primary Care Provider] - Instructions: Cancer, Radiation Treatment, Hypertension, [id number], Atrial Fibrillation, [id number]
== END 2016-09-17 12:00 | disposition home or self-care (01) | DRG 55 ==
LOC: ER 13:55 → TELE 16:34
PROVIDERS: ADMIT Family Medicine; ATTEND Family Medicine
DX: C79.31 Secondary malignant neoplasm of brain (principal); I48.91 Unspecified atrial fibrillation; G62.9 Polyneuropathy, unspecified; I11.0 Hypertensive heart disease with heart failure; I50.30 Unspecified diastolic (congestive) heart failure; C76.2 Malignant neoplasm of abdomen; I25.118 Atherosclerotic heart disease of native coronary artery with other forms of angina pectoris; E78.5 Hyperlipidemia, unspecified; Z85.038 Personal history of other malignant neoplasm of large intestine; Z92.21 Personal history of antineoplastic chemotherapy
CPT/HCPCS: 36415-UA; 70450-TC; 70460-TC; 71010-TC; 71260-TC; 80053-TC; 81001-TC; 83880-TC; 84443-TC; 84484-TC; 85025-TC; 86592-TC; 93005; 93971-TC-RT; J1100; Z7610; Z7610-TC